=== PATIENT | female | born 1960 | race Caucasian/White ===

== ENCOUNTER 2019-02-24 18:37 | Emergency (ER) | payer SELFPAY ==
[~2019-02-24] VITALS: Ht 160 cm; Wt 62.0 kg
[2019-02-24 19:18] LABS: BASOPHILS % (AUTO) 0.4 % (0-1); EOSINOPHILS % (AUTO) 0.5 % (0-6); HEMATOCRIT 44.2 % (35.0-45.0); HEMOGLOBIN 14.8 g/dl (12.0-16.0); LYMPHOCYTES # (AUTO) 2.6 X10'3 (1.1-4.8); LYMPHOCYTES % (AUTO) 41.2 % (21-51); MEAN CORPUSCULAR HEMOGLOBIN 29.1 PG (27.0-31.0); MEAN CORPUSCULAR HGB CONC 33.5 g/dL (33.0-36.5); MEAN PLATELET VOLUME 9.7 FL (7.4-10.4); MONOCYTES # (AUTO) 0.5 X10'3 (0-0.9); MONOCYTES % (AUTO) 8.1 % (2-12); NEUTROPHILS # (AUTO) 3.2 X10'3 (1.8-7.7); NEUTROPHILS % (AUTO) 49.8 % (42-75); PLATELET COUNT 245 X10'3 (140-440); RED BLOOD COUNT 5.09 X10'6 (4.20-5.60); RED CELL DISTRIBUTION WIDTH 13.2 % (11.5-14.5); WHITE BLOOD COUNT 6.4 X10'3 (4.5-11.0)
[2019-02-24 19:28] LABS: CLARITY,URINE SLIGHTLY CLOUDY (Clear); COLOR,URINE YELLOW (Yellow); GLUCOSE, URINE 500 mg/dl (Neg); KETONES,URINE TRACE mg/dl (Neg); LEUKOCYTE ESTERASE ,URINE NEGATIVE (Neg); NITRITES, URINE NEGATIVE (Neg); OCCULT BLOOD,URINE LARGE (Neg); PH,URINE 5.5 (4.8-8.0); PROTEIN,URINE 30 mg/dl (Neg)
[2019-02-24 19:36] LABS: UA COLLECTION TYPE CLN CATCH MIDSTREAM
[2019-02-24 19:37] LABS: WBC,URINE 0-4 /HPF (0-4)
[2019-02-24 19:38] LABS: BACTERIA,URINE FEW /HPF (Neg); CAL OXALATE CRYSTALS FEW /HPF (NEGATIVE); RBC,URINE 50-100 /HPF (0-2); SQUAMOUS EPITHELIAL CELL,UR FEW /LPF (FEW)
[2019-02-24 19:40] LABS: URINE HCG NEGATIVE (NEG)
[2019-02-24] MEDS ORDERED: ketorolac trometh. 30mg/ml inj. IV ONE (20:00)
[2019-02-24] MEDS ORDERED: morphine 4 MG/ML inj SYRINge IV PRN (20:00)
[2019-02-24] MEDS ORDERED: normal saline 1000ML IV soln IVB ONE (20:00)
[2019-02-24] MEDS ORDERED: ondansetron/PF 4mg/2ml inj IV ONE (20:00)
[2019-02-24 20:04] LABS: ALANINE AMINOTRANSFERASE 75 U/L (12-78); ALBUMIN 3.9 G/DL (3.4-5.0); ALBUMIN/GLOBULIN RATIO 1.1 (1.1-1.5); ALKALINE PHOSPHATASE 196 IU/L (46-116); ANION GAP 9 (8-16); ASPARTATE AMINO TRANSFERASE 55 U/L (10-37); BILIRUBIN,TOTAL 0.7 MG/DL (0.1-1.0); BLOOD UREA NITROGEN 10 MG/DL (7-18); BUN/CREATININE RATIO 8.9 (6.6-38.0); CALCIUM 9.2 MG/DL (8.5-10.1); CHLORIDE 105 MMOL/L (99-107); CREATININE 1.12 MG/DL (0.40-0.90); GLUCOSE 261 MG/DL (70-104); LIPASE 55 U/L (73-393); POTASSIUM 3.2 MMOL/L (3.5-5.1); SODIUM 141 MMOL/L (135-145); TOTAL CARBON DIOXIDE 27.4 MMOL/L (24-32); TOTAL PROTEIN 7.6 G/DL (6.4-8.2); eGFR 50 ML/MIN
[2019-02-24 20:36] VITALS: BP 222/95
[2019-02-24] MEDS ORDERED: HYDROcodone/acetaminophen 10/325mg tab PO ONE (20:50)
[2019-02-24] MEDS ORDERED: HYDR-4353 PO (20:53)
[2019-02-24] MEDS ORDERED: IBUP-1986 PO (20:53)
== END 2019-02-24 21:15 | disposition home or self-care (01) ==
LOC: ER 18:38
DX: N13.2 Hydronephrosis with renal and ureteral calculous obstruction (principal); F41.9 Anxiety disorder, unspecified; Z88.5 Allergy status to narcotic agent; Z88.8 Allergy status to other drugs, medicaments and biological substances; Z79.899 Other long term (current) drug therapy; Z90.49 Acquired absence of other specified parts of digestive tract; Z98.51 Tubal ligation status; Z98.890 Other specified postprocedural states; Z87.442 Personal history of urinary calculi
CPT/HCPCS: 36415; 74176; 80053; 81001; 81025; 83690; 85025; 85610; 96374; 96375; 99284; J1885; J2270; J2405; J7030